=== PATIENT | female | born 2000 | race Caucasian/White ===

== ENCOUNTER 2025-01-20 23:31 | Emergency (ER) | payer MEDICAID ==
[~2025-01-20] VITALS: Ht 154.9 cm; Wt 54.0 kg
[2025-01-20 23:38] VITALS: O2SAT 100
[2025-01-21] LABS: BASOPHILS % 1.1 % (0.0-2.0); EOSINOPHILS % 1.5 % (0.0-5.0); HEMATOCRIT. 34.7 % (36.0-48.0); HEMOGLOBIN. 11.9 g/dL (12.0-16.0); LYMPHOCYTES % 35.4 % (20.0-50.0); MEAN PLATELET VOLUME 9.2 fl (7.4-10.4); MONOCYTES % 7.2 % (2.0-8.0); NEUTROPHILS % 54.8 % (40.0-76.0); PLATELET 164 x1000/uL (130-400); RED BLOOD CELL COUNT 3.96 mill/uL (4.2-5.4); RED CELL DISTRIBUTION WIDTH 13.2 % (11.6-14.6)
[2025-01-21 00:11] LABS: CREATININE 0.6 mg/dL (0.6-1.0)
[2025-01-21 00:12] LABS: ETHANOL BLOOD < 10 mg/dL (<10); UREA NITROGEN BLOOD 7 mg/dL (9-23)
[2025-01-21 00:13] LABS: ASPARTATE AMINOTRANSFERASE 19 IU/L (<34)
[2025-01-21 00:14] LABS: BILIRUBIN DIRECT 0.1 mg/dL (<=3.0); BILIRUBIN TOTAL 0.5 mg/dL (0.1-1.0); PROTEIN TOTAL 6.6 g/dL (6.0-8.3)
[2025-01-21 00:15] LABS: HCG SCREEN POSITIVE
[2025-01-21 00:26] LABS: B-HCG QUANTITATIVE 15408 mIU/mL (<6)
[2025-01-21] MEDS: MORPHINE SULFATE 4 MG/ML INJ (FOR IV/IM USE) IV ONE ×2 (00:30→00:34)
[2025-01-21] MEDS: ACETAMINOPHEN 500MG TABLET PO ONE (00:32)
[2025-01-21] MEDS: FAMOTIDINE 20MG/2ML VIAL IV ONE (00:32)
[2025-01-21] MEDS: ONDANSETRON HCL 4MG/2ML INJ IV ONE (00:34)
[2025-01-21] MEDS: SODIUM CHLORIDE 0.9% 1,000 ML IV ONE (00:36)
[2025-01-21 01:14] LABS: CLARITY URINE CLEAR (CLEAR); COLOR URINE YELLOW (YELLOW); GLUCOSE URINE TRACE (NEGATIVE); KETONES URINE NEGATIVE (NEGATIVE); LEUKOCYTE ESTERASE URINE NEGATIVE (NEGATIVE); NITRITE URINE NEGATIVE (NEGATIVE); OCCULT BLOOD URINE NEGATIVE (NEGATIVE); PH URINE 8.0 (4.5-8.0); PROTEIN URINE NEGATIVE (NEGATIVE); SPECIFIC GRAVITY URINE 1.009 (1.005-1.030); UROBILINOGEN URINE 0.2 E.U./dL (0.2-1.0)
[2025-01-21 01:16] LABS: INR 1.0
[2025-01-21 01:38] LABS: BACTERIA URINE 1+; RBC URINE NONE SEEN /hpf (0-2); SQUAMOUS EPITHELIAL CELL URINE 1+ /lpf (RARE/1+); WBC URINE 0-2 /hpf (0-2)
[2025-01-21 01:39] LABS: *AMPHETAMINES SCREEN URINE NEGATIVE (NEGATIVE); *BARBITURATES SCREEN URINE NEGATIVE (NEGATIVE); *BENZODIAZEPINES SCREEN URINE NEGATIVE (NEGATIVE)
[2025-01-21 01:40] LABS: *COCAINE SCREEN URINE NEGATIVE (NEGATIVE); CANNABINOID URINE SCREEN NEGATIVE (NEGATIVE); ECSTASY MDMA SCREEN URINE NEGATIVE (NEGATIVE); METHADONE URINE SCREEN NEGATIVE (NEGATIVE); OPIATES URINE SCREEN PRESUMPTIVE POSITIVE (NEGATIVE); PHENCYCLIDINE URINE SCREEN NEGATIVE (NEGATIVE)
[2025-01-21] MEDS: MORPHINE SULFATE 2 MG/ML INJ (NOT FOR IM USE) IV NR (02:08)
[2025-01-21 03:37] VITALS: BP 106/59; PULSE 94; RESP 20; TEMP 36.7; O2SAT 98
== END 2025-01-21 03:37 | disposition short-term general hospital (02) ==
LOC: ER 23:31
DX: O99.613 Diseases of the digestive system complicating pregnancy, third trimester (principal); K80.81 Other cholelithiasis with obstruction; Z3A.34 34 weeks gestation of pregnancy; Z79.899 Other long term (current) drug therapy
CPT/HCPCS: 80076; 80048; 80320; 84703; 84702; 83690; 83735; 85025; 86850; 86900; 86901; 36415 ×2; 76805; 76817; 99285; 80305; 81003; 82962; 85379; 85610; 93970; 76700; 96361; 96374; 96375; J7030; J1308; J2405; J2270; Z7610; G0480

== ENCOUNTER 2025-03-16 23:04 | Emergency (ER) | payer MEDICAID ==
[~2025-03-16] VITALS: Ht 167.6 cm; Wt 54.0 kg
[2025-03-16 23:17] VITALS: O2SAT 98
[2025-03-17] MEDS ORDERED: MORPHINE SULFATE 4 MG/ML INJ (FOR IV/IM USE) IV ONE
[2025-03-17] MEDS: ONDANSETRON HCL 4MG/2ML INJ IV ONE (00:21)
[2025-03-17] MEDS: MORPHINE SULFATE 4 MG/ML INJ (FOR IV/IM USE) IV NR (00:38)
[2025-03-17] MEDS: MORPHINE SULFATE 2 MG/ML INJ (NOT FOR IM USE) IV ONE (00:39)
[2025-03-17 00:41] LABS: BASOPHILS % 0.5 % (0.0-2.0); EOSINOPHILS % 3.2 % (0.0-5.0); HEMATOCRIT. 35.7 % (36.0-48.0); HEMOGLOBIN. 11.8 g/dL (12.0-16.0); LYMPHOCYTES % 21.0 % (20.0-50.0); MEAN PLATELET VOLUME 8.4 fl (7.4-10.4); MONOCYTES % 5.4 % (2.0-8.0); NEUTROPHILS % 69.9 % (40.0-76.0); PLATELET 262 x1000/uL (130-400); RED BLOOD CELL COUNT 4.03 mill/uL (4.2-5.4); RED CELL DISTRIBUTION WIDTH 13.4 % (11.6-14.6)
[2025-03-17 00:42] LABS: CLARITY URINE CLEAR (CLEAR); COLOR URINE YELLOW (YELLOW); GLUCOSE URINE NEGATIVE (NEGATIVE); KETONES URINE NEGATIVE (NEGATIVE); LEUKOCYTE ESTERASE URINE 1+ (NEGATIVE); NITRITE URINE NEGATIVE (NEGATIVE); OCCULT BLOOD URINE 1+ (NEGATIVE); PH URINE 6.5 (4.5-8.0); PROTEIN URINE NEGATIVE (NEGATIVE); SPECIFIC GRAVITY URINE 1.016 (1.005-1.030); UROBILINOGEN URINE 0.2 E.U./dL (0.2-1.0)
[2025-03-17 00:54] LABS: CREATININE 0.7 mg/dL (0.6-1.0); UREA NITROGEN BLOOD 10 mg/dL (9-23)
[2025-03-17 00:56] LABS: ASPARTATE AMINOTRANSFERASE 17 IU/L (<34); BILIRUBIN DIRECT < 0.1 mg/dL (<=3.0); BILIRUBIN TOTAL 0.3 mg/dL (0.1-1.0); PROTEIN TOTAL 6.6 g/dL (6.0-8.3)
[2025-03-17 00:59] LABS: BACTERIA URINE TRACE; RBC URINE 0-2 /hpf (0-2); SQUAMOUS EPITHELIAL CELL URINE FEW /lpf (RARE/1+)
[2025-03-17] MEDS ORDERED: ONDA-239 PO (01:47)
[2025-03-17 02:05] VITALS: BP 100/63; PULSE 60; RESP 13; TEMP 36.9; O2SAT 99
== END 2025-03-17 02:15 | disposition home or self-care (01) ==
LOC: ER 23:04 → CMPBEDREQ 03-17 07:43
DX: K80.20 Calculus of gallbladder without cholecystitis without obstruction (principal); R10.11 Right upper quadrant pain
CPT/HCPCS: 99285; 36415; 96374; 76705; 96375; 80076; 80048; 81003; 83690; 85025; J2405; J2270

== ENCOUNTER 2025-03-31 07:49 | Emergency (ER) | payer MEDICAID ==
[~2025-03-31] VITALS: Ht 162.6 cm; Wt 63.0 kg
[~2025-03-31 07:49] MED LIST: ONDA-239 PO
[2025-03-31 08:01] VITALS: O2SAT 99
[2025-03-31 08:03] VITALS: BP 92/56; PULSE 67; RESP 18; TEMP 36.9; O2SAT 100
[2025-03-31 10:36] LABS: CLARITY URINE CLEAR (CLEAR); COLOR URINE DARK YELLOW (YELLOW); GLUCOSE URINE NEGATIVE (NEGATIVE); KETONES URINE NEGATIVE (NEGATIVE); LEUKOCYTE ESTERASE URINE 1+ (NEGATIVE); NITRITE URINE NEGATIVE (NEGATIVE); OCCULT BLOOD URINE 1+ (NEGATIVE); PH URINE 7.0 (4.5-8.0); PROTEIN URINE TRACE (NEGATIVE); SPECIFIC GRAVITY URINE 1.031 (1.005-1.030); UROBILINOGEN URINE 1.0 E.U./dL (0.2-1.0)
[2025-03-31 11:47] LABS: SQUAMOUS EPITHELIAL CELL URINE RARE /lpf (RARE/1+)
[2025-03-31 11:48] LABS: BACTERIA URINE 1+; RBC URINE TNTC /hpf (0-2); YEAST URINE NONE SEEN
== END 2025-03-31 12:33 | disposition left against medical advice (07) ==
LOC: ER 07:49
DX: R10.9 Unspecified abdominal pain (principal)
CPT/HCPCS: 81003; 81025; 87077; 87186; 99281